=== PATIENT | female | born 2000 | race African-American/Black ===

== ENCOUNTER 2023-09-10 00:41 | Emergency (ER) | payer OTHER ==
[2023-09-10 01:00] VITALS: BP 116/76; PULSE 70; RESP 18; TEMP 97.8; BMI 19.3
[2023-09-10] MEDS ORDERED: SODIUM CHLORIDE 1,000 ML IV STA (01:39)
[2023-09-10 02:10] LABS: BASO % 0.5 % (0-2.0); EOS % 0.7 % (0-4.5); HEMATOCRIT 37.4 % (32.4-45.2); HEMOGLOBIN 12.3 GM/dL (10.7-15.3); LYMPH % 21.8 % (8-40); MCH 25.3 pg (25.7-33.7); MCHC 32.9 g/dl (32.0-36.0); MEAN PLT VOLUME 6.9 fl (7.5-11.1); MONO % 8.9 % (3.8-10.2); NEUT % 68.1 % (42.8-82.8); PLATELET COUNT 260 10^3/uL (134-434); RBC 4.86 M/mm3 (3.60-5.2); RDW 15.8 % (11.6-15.6); WHITE BLOOD COUNT 6.6 K/mm3 (4.0-10.0)
[2023-09-10 02:29] LABS: POTASSIUM 4.4 mmol/L (3.5-5.1)
[2023-09-10 02:31] LABS: ALBUMIN 3.5 g/dl (3.4-5.0); CALCIUM 8.6 mg/dL (8.5-10.1)
[2023-09-10 02:32] LABS: BLOOD UREA NITROGEN 7.6 mg/dL (7-18)
[2023-09-10 02:35] LABS: CREATININE 0.8 mg/dL (0.55-1.3)
[2023-09-10 02:36] LABS: BILIRUBIN,TOTAL 0.4 mg/dL (0.2-1); TOT PROT 7.4 g/dl (6.4-8.2)
== END 2023-09-10 04:19 | disposition home or self-care (01) ==
LOC: JER 00:41
PROC: 3E0337Z Introduction of Electrolytic and Water Balance Substance into Peripheral Vein, Percutaneous Approach (ICD-10-PCS; principal; 2023-09-10)
DX: R42 Dizziness and giddiness (principal); R51.9 Headache, unspecified; R11.0 Nausea; Z20.822 Contact with and (suspected) exposure to COVID-19
CPT/HCPCS: 0241U-QW; 36415; 71046-TC-FY; 80053; 84484; 84703; 85025; 93005; 93010; 99285-25